=== PATIENT | female | born 1975 | race Caucasian/White ===

== ENCOUNTER 2018-08-06 15:50 | Outpatient (CLI) | payer BC | END 2018-08-06 15:51 | disposition home or self-care (01) | LOC: BICMAMMO 15:50 | PROVIDERS: ATTEND Family Medicine | DX: Z12.31 Encounter for screening mammogram for malignant neoplasm of breast (principal); N64.89 Other specified disorders of breast; Z80.3 Family history of malignant neoplasm of breast | CPT/HCPCS: 77063; 77067 ==

== ENCOUNTER 2018-08-21 09:59 | Outpatient (CLI) | payer BC ==
--- NOTE | 2018-08-21 11:26 | ULT ---
LIMITED LEFT BREAST ULTRASOUND: Date: 08-21-18 Provided Clinical History: Abnormal mammogram. FINDINGS: Limited sonographic interrogation of the left breast was performed in the region of mammographic conc ana. A cluster of cysts in aggregate measure about 1.5 cm is seen in the region of mammographic tremaine rn. No concerning sonographic findings are evident. IMPRESSION: BIRADS category 2 - benign findings. Return to annual screening mammography recommended. POS: RHONDA
== END 2018-08-21 10:00 | disposition home or self-care (01) ==
LOC: BICMAMMO 09:59
PROVIDERS: ATTEND Family Medicine
DX: R92.2 Inconclusive mammogram (principal); N63.20 Unspecified lump in the left breast, unspecified quadrant; Z80.3 Family history of malignant neoplasm of breast
CPT/HCPCS: G0279

== ENCOUNTER 2018-09-03 16:24 | Outpatient (CLI) | payer BC ==
[2018-09-03 18:07] LABS: Hemoglobin 13.5 g/dL (12.0-16.0); Mean Corpuscular Hemoglobin 31.3 pg (27.0-31.0); Mean Platelet Volume 7.9 fL (7.4-10.4); Platelet Count 259 thou/uL (130-400); RBC Distribution Width 11.5 % (11.5-14.5); Red Blood Cell (RBC) Count 4.33 mill/uL (4.20-5.40); White Blood Cell (WBC) Count 9.7 thou/uL (4.8-10.8)
[2018-09-03 18:19] LABS: BHCG - Serum Negative (NEGATIVE); Pregs Control Background? CLEAR/WHITE (CLR/WHITE); Pregs Control Bar Appear? YES (CONTROL BAR)
== END 2018-09-03 16:25 | disposition home or self-care (01) ==
LOC: LABBT 16:24
PROVIDERS: ATTEND Student in an Organized Health Care Education/Training Program
DX: Z01.812 Encounter for preprocedural laboratory examination (principal); R85.619 Unspecified abnormal cytological findings in specimens from anus
CPT/HCPCS: 84703; 85027; 86850; 86900; 86901

== ENCOUNTER 2018-09-07 11:02 | Day surgery (SDC) | payer BC ==
[2018-09-03 16:23] VITALS: BMI 24.4
--- NOTE | 2018-09-06 22:27 | HP ---
DATE OF OPERATION: 09/07/2018. CHIEF COMPLAINT: Atypical glandular cells on colposcopic biopsies. HISTORY OF PRESENT ILLNESS: This is a 43-year-old G3, P3 with an abnormal HPV, presenting to my office in 07/2018. 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 Her endocervical curettage was negative. She has been dispositioned for further diagnostic workup with cold knife conization. REVIEW OF SYSTEMS: Negative. PAST MEDICAL HISTORY: Negative. PAST SURGICAL HISTORY: Negative. SOCIAL HISTORY: Negative x3. Occasional alcohol intake. FAMILY HISTORY: Negative. CURRENT MEDICATIONS: Ludivina Fe 1.530 p.o. daily. BLANKET BINDER HISTORY: No abnormal paps prior to the positive HPV this year, last pap smear prior this was 2015. No history of other STDs. OB HISTORY: G3, P3, SVDx3. PHYSICAL EXAMINATION: VITAL SIGNS: Blood pressure 100/80, pulse 53, respirations 18, pulse ox 98%, weight 138 pounds, BMI is 24.4. GENERAL: No acute distress. CARDIAC: Regular rate and rhythm. LUNGS: Clear to auscultation bilaterally. ABDOMEN: Soft, nontender, and nondistended. EXTREMITIES: No edema, cyanosis, or clubbing. PELVIC: Deferred to OR. ASSESSMENT AND PLAN: This is a 43-year-old P3 with atypical glandular cells on colposcopic biopsy for further diagnostic evaluation with cold knife conization. I have discussed procedure in detail with the patient including risks, benefits, and alternatives. The patient understands and wishes to proceed. Postoperative care has been explained. The patient will follow up with me in 2 weeks' postoperative time. Job ID: [id number]
[2018-09-07] MEDS ORDERED: CEFAZOLIN 2 GM/50 ML BAG ONE (11:47)
[2018-09-07] MEDS ORDERED: Midazolam HCl 2 mg/2 ml Vial ONE ×4 (12:42→15:58)
[2018-09-07] MEDS ORDERED: Fentanyl 100 MCG/2 ML VIAL ONE ×3 (13:30→15:58)
[2018-09-07] MEDS ORDERED: Ferric Subsulfate 8 ML BOT ONE (15:46)
[2018-09-07] MEDS ORDERED: Lidocaine 1% w/Epinephrine 1:100K 30 ML VIAL ONE (15:46)
[2018-09-07] MEDS ORDERED: Famotidine/PF 20 mg/2ml Vial ONE (15:54)
[2018-09-07] MEDS ORDERED: PROPOFOL 200 MG/20 ML VIAL ONE (16:42)
[2018-09-07] MEDS ORDERED: Ondansetron PF 4 MG/2 ML Vial ONE (16:42)
[2018-09-07] MEDS ORDERED: PHENYLEPHRINE-NS 100 MCG/ML 10 ML SYRINGE ONE (16:42)
[2018-09-07] MEDS ORDERED: Lidocaine 1% PF 5 ML VIAL ONE (16:42)
[2018-09-07] MEDS ORDERED: Dexamethasone 20 MG/5 ML VIAL ONE (16:42)
[2018-09-07] MEDS ORDERED: diphenhydrAMINE 50 MG/ML VIAL ONE (16:42)
[2018-09-07] MEDS ORDERED: ePHEDrine/0.9% NaCl/PF SYRINGE 50 mg/10 ml ONE (16:42)
--- NOTE | 2018-09-08 04:26 | OP ---
DATE OF PROCEDURE: 09/07/2018 PREOPERATIVE DIAGNOSIS: Atypical glandular cell on cervical biopsy. POSTOPERATIVE DIAGNOSIS: Atypical glandular cell on cervical biopsy. PROCEDURES PERFORMED: Cold knife cone and dilation and curettage. POSTAL INSPECTOR: None. ANESTHESIA: General endotracheal. ESTIMATED BLOOD LOSS: 20 mL. IVF: 1 L of crystalloid. URINE OUTPUT: 100 mL, clear urine at the beginning. COMPLICATIONS: None. DRAINS: None. PATHOLOGY: 1. Cervical cone biopsy with 12 o'clock marked with suture. 2. No endometrial curettings. FINDINGS: After removal of staining of the cervix, nonstaining areas were noted on the anterior and posterior lip of the endocervix. Hemostasis was excellent. DESCRIPTION OF PROCEDURE: The patient was taken to the operating room, where general anesthesia was obtained without difficulty. The patient was prepped and draped in a sterile fashion in dorsal lithotomy position. The bladder was catheterized with red rubber, speculum was placed in the vagina. Lugol's was placed over the cervix and vaginal vault. The nonstained areas of the cervix were noted as above in the findings. There was no nonstaining in the vaginal canal. The cervix was then grasped with the tenaculum and progressively dilated with dilators. The uterus was then sounded to 7 cm and sharp curettage was performed to all 4 uterine campbell. Specimen was sent for final pathology. The tenaculum was removed. Stay sutures of 0 Vicryl were placed at 3 o'clock and 9 o'clock and used for traction. The cervix was infiltrated with 1% lidocaine with epi, 20 mL. A [place] Blade was used to take a large cone specimen at the cervix. This was then tagged at 12 o'clock with an 0 Vicryl suture. Hemostasis was achieved with Bovie cautery. Sturmdorf sutures of 0 Vicryl were then placed in the anterior and posterior cervical lips. Monsel's was placed in the endocervical bed and stay sutures were then tied in the midline of the cervix. Hemostasis was noted to be excellent. All instruments were removed out of the vagina. The patient tolerated the procedure well. Sponge and needle counts were correct x2. The patient was sent to recovery room in stable condition. Job ID: [id number]
== END 2018-09-07 19:20 | disposition home or self-care (01) ==
LOC: SDC 11:02
PROVIDERS: ATTEND Student in an Organized Health Care Education/Training Program
PROC: 0UBC7ZX Excision of Cervix, Via Natural or Artificial Opening, Diagnostic (ICD-10-PCS; principal; 2018-09-07)
PROC: 0UDB7ZX Extraction of Endometrium, Via Natural or Artificial Opening, Diagnostic (ICD-10-PCS; principal; 2018-09-07)
DX: N87.0 Mild cervical dysplasia (principal); N72 Inflammatory disease of cervix uteri; Z79.3 Long term (current) use of hormonal contraceptives; Z79.899 Other long term (current) drug therapy
CPT/HCPCS: 88305; 88307; 88341; 88342; J0131; J1100; J1200; J2001; J2250; J2405; J2704; J3010; S0028